=== PATIENT | female | born 1970 | race Caucasian/White ===

== ENCOUNTER 2022-08-17 07:41 | Inpatient (IN) | payer MEDICAID ==
[~2022-08-17] VITALS: Ht 142.2 cm; Wt 81.2 kg
[2022-08-17] MEDS ORDERED: METHYLPREDNISOLONE SOD SUCC 125 MG/2 ML VIAL IV STA (07:53)
[2022-08-17] MEDS ORDERED: ALBUTEROL (0.083%) 2.5MG/3ML NEB HHN STA ×2 (07:53→09:16)
[2022-08-17] MEDS ORDERED: IPRATROPIUM BROMIDE (0.02%) 0.5MG/2.5ML NEB HHN STA (07:53)
[2022-08-17] MEDS ORDERED: SODIUM CHLORIDE 0.9% 1,000 ML IV ONE (08:30)
[2022-08-17] MEDS ORDERED: ACETAMINOPHEN 325MG TABLET PO NR (08:30)
[2022-08-17 08:53] LABS: CHLORIDE 105 mEq/L (98-107)
[2022-08-17 08:55] LABS: HCG SCREEN NEGATIVE
[2022-08-17 08:56] LABS: HEMATOCRIT. 47.9 % (36.0-48.0); HEMOGLOBIN. 15.4 g/dL (12.0-16.0); MEAN CORPUSCULAR HEMOGLOBIN 26.7 pg (28.0-32.0); MEAN CORPUSCULAR VOLUME 83.1 fL (81.0-99.0); MEAN PLATELET VOLUME 8.3 fl (7.4-10.4); PLATELET 330 x1000/uL (130-400); RED BLOOD CELL COUNT 5.77 mill/uL (4.2-5.4); RED CELL DISTRIBUTION WIDTH 20.6 % (11.6-14.6)
[2022-08-17 09:03] LABS: ETHANOL BLOOD < 10 mg/dL
[2022-08-17 09:29] LABS: PLATELET ESTIMATE NORMAL
[2022-08-17] MEDS ORDERED: MAGNESIUM 2 G PREMIX 50 ML IV ONE (11:00)
[2022-08-17 11:28] LABS: *AMPHETAMINES SCREEN URINE NEGATIVE (NEGATIVE); *BARBITURATES SCREEN URINE NEGATIVE (NEGATIVE); *BENZODIAZEPINES SCREEN URINE NEGATIVE (NEGATIVE); *COCAINE SCREEN URINE NEGATIVE (NEGATIVE); CANNABINOID URINE SCREEN NEGATIVE (NEGATIVE); METHADONE URINE SCREEN NEGATIVE (NEGATIVE); OPIATES URINE SCREEN NEGATIVE (NEGATIVE); PHENCYCLIDINE URINE SCREEN NEGATIVE (NEGATIVE)
[2022-08-17] MEDS ORDERED: IPRATROPIUM/ALBUTEROL 0.5-3(2.5)MG/3ML NEB HHN PRN ×2 (15:00→15:45)
[2022-08-17] MEDS ORDERED: DIPHENHYDRAMINE 50MG/ML VIAL IV PRN (15:00)
[2022-08-17] MEDS ORDERED: ACETAMINOPHEN 325MG TABLET PO PRN (15:00)
[2022-08-17] MEDS ORDERED: CLONIDINE 0.1MG TABLET PO PRN (15:00)
[2022-08-17] MEDS ORDERED: ONDANSETRON HCL 4MG/2ML INJ IV PRN (15:00)
[2022-08-17] MEDS ORDERED: AZITHROMYCIN 500 MG TABLET PO NR (15:45)
[2022-08-17] MEDS ORDERED: IPRATROPIUM/ALBUTEROL 0.5-3(2.5)MG/3ML NEB HHN SCH (16:00)
[2022-08-17] MEDS: METHYLPREDNISOLONE SOD SUCC 125 MG/2 ML VIAL IV SCH ×2 (16:23→20:35)
[2022-08-17] MEDS: LORATADINE 10MG TABLET PO SCH (16:24)
[2022-08-17 17:27] VITALS: BP 121/67
[2022-08-17 18:00] VITALS: BP 121/67
[2022-08-17 20:00] VITALS: BP 112/71
[2022-08-17] MEDS: FAMOTIDINE 20MG TABLET PO SCH (20:35)
[2022-08-17] MEDS: IPRATROPIUM BROMIDE (0.02%) 0.5MG/2.5ML NEB HHN SCH (20:55)
[2022-08-17] MEDS: ALBUTEROL (0.083%) 2.5MG/3ML NEB HHN SCH (20:55)
[2022-08-17] MEDS ORDERED: ALBUTEROL (0.083%) 2.5MG/3ML NEB HHN PRN (21:00)
[2022-08-17] MEDS ORDERED: IPRATROPIUM BROMIDE (0.02%) 0.5MG/2.5ML NEB HHN PRN (21:00)
[2022-08-18] VITALS: BP 123/68
[2022-08-18] MEDS: ALBUTEROL (0.083%) 2.5MG/3ML NEB HHN SCH ×6 (00:18→20:33)
[2022-08-18] MEDS: IPRATROPIUM BROMIDE (0.02%) 0.5MG/2.5ML NEB HHN SCH ×4 (00:18→20:34)
[2022-08-18 04:00] VITALS: BP 119/70
[2022-08-18] MEDS: METHYLPREDNISOLONE SOD SUCC 125 MG/2 ML VIAL IV SCH ×4 (05:20→21:14)
[2022-08-18 05:39] LABS: HEMATOCRIT. 37.1 % (36.0-48.0); HEMOGLOBIN. 11.8 g/dL (12.0-16.0); MEAN CORPUSCULAR HEMOGLOBIN 26.6 pg (28.0-32.0); MEAN CORPUSCULAR VOLUME 83.4 fL (81.0-99.0); MEAN PLATELET VOLUME 8.1 fl (7.4-10.4); PLATELET 276 x1000/uL (130-400); RED BLOOD CELL COUNT 4.45 mill/uL (4.2-5.4)
[2022-08-18 05:52] LABS: CHLORIDE 111 mEq/L (98-107)
[2022-08-18 08:00] VITALS: BP 108/63
[2022-08-18] MEDS: FAMOTIDINE 20MG TABLET PO SCH ×2 (08:41→21:14)
[2022-08-18] MEDS: AZITHROMYCIN 250 MG TABLET PO SCH (08:41)
[2022-08-18] MEDS: LORATADINE 10MG TABLET PO SCH (08:41)
[2022-08-18 12:00] VITALS: BP 101/69
[2022-08-18 13:41] LABS: PLATELET ESTIMATE NORMAL
[2022-08-18] MEDS ORDERED: FLUT1BLS8 IH (14:34)
[2022-08-18] MEDS ORDERED: ALBU6.7H3 INH (14:34)
[2022-08-18] MEDS ORDERED: AMOX1TAB15 PO (14:34)
[2022-08-18] MEDS ORDERED: GUAIFENESIN-DM 200MG-20MG/10ML UDC PO PRN (15:30)
[2022-08-18] MEDS: BENZONATATE 100MG CAPSULE PO SCH (15:42)
[2022-08-18 16:00] VITALS: BP 119/66
[2022-08-18] MEDS ORDERED: MONTELUKAST SODIUM 10MG TABLET PO SCH (17:00)
[2022-08-18 20:00] VITALS: BP 101/52
[2022-08-19] VITALS: BP 121/74
[2022-08-19] MEDS: BENZONATATE 100MG CAPSULE PO SCH ×3 (00:07→14:18)
[2022-08-19] MEDS: ALBUTEROL (0.083%) 2.5MG/3ML NEB HHN SCH ×4 (00:15→12:04)
[2022-08-19] MEDS: IPRATROPIUM BROMIDE (0.02%) 0.5MG/2.5ML NEB HHN SCH ×4 (00:16→12:03)
[2022-08-19] MEDS: METHYLPREDNISOLONE SOD SUCC 125 MG/2 ML VIAL IV SCH ×3 (03:59→14:18)
[2022-08-19 04:00] VITALS: BP 108/60
[2022-08-19 07:10] LABS: HEMATOCRIT. 36.6 % (36.0-48.0); HEMOGLOBIN. 11.9 g/dL (12.0-16.0); MEAN CORPUSCULAR HEMOGLOBIN 27.1 pg (28.0-32.0); MEAN CORPUSCULAR VOLUME 83.4 fL (81.0-99.0); PLATELET 277 x1000/uL (130-400); RED BLOOD CELL COUNT 4.39 mill/uL (4.2-5.4); RED CELL DISTRIBUTION WIDTH 21.2 % (11.6-14.6)
[2022-08-19 08:00] VITALS: BP 120/69
[2022-08-19 08:09] LABS: CHLORIDE 111 mEq/L (98-107)
[2022-08-19] MEDS: AZITHROMYCIN 250 MG TABLET PO SCH (08:47)
[2022-08-19] MEDS: FAMOTIDINE 20MG TABLET PO SCH (08:47)
[2022-08-19] MEDS: LORATADINE 10MG TABLET PO SCH (08:48)
[2022-08-19] MEDS ORDERED: AZIT500T8 MT (12:32)
[2022-08-19] MEDS ORDERED: ALBU6.7H3 INH (12:32)
[2022-08-19] MEDS ORDERED: FLUT1BLS8 IH (12:32)
[2022-08-19] MEDS ORDERED: MONT-46 PO (12:32)
[2022-08-19] MEDS ORDERED: CLAR10 PO (12:32)
[2022-08-19] MEDS ORDERED: PRED10TA MT (12:32)
[2022-08-19] MEDS ORDERED: FAMO20TA8 MT (12:32)
[2022-08-19] MEDS ORDERED: BENZ100C86 PO (12:32)
[2022-08-19 14:55] LABS: PLATELET ESTIMATE NORMAL
== END 2022-08-19 16:10 | disposition home or self-care (01) | DRG 133 ==
LOC: ER 07:41 → 7EST 13:19
PROVIDERS: ADMIT Internal Medicine; ATTEND Internal Medicine
DX: J96.00 Acute respiratory failure, unspecified whether with hypoxia or hypercapnia (principal); J45.901 Unspecified asthma with (acute) exacerbation; D72.825 Bandemia; E66.9 Obesity, unspecified; Z20.822 Contact with and (suspected) exposure to COVID-19; Z68.41 Body mass index [BMI] 40.0-44.9, adult; Z86.16 Personal history of COVID-19; Z79.899 Other long term (current) drug therapy; Z82.5 Family history of asthma and other chronic lower respiratory diseases
CPT/HCPCS: 36415; 71045; 80048; 80053; 80305; 80320; 83880; 84484; 84703; 85025; 85379; 87426; 93005; 93970; 94640; 99285; C9803; J1200; J2930; J3475; G0480